=== PATIENT | female | born 1990 | race Two or more races ===

== ENCOUNTER 2018-05-18 19:37 | Emergency (ER) | payer OTHER ==
[~2018-05-18] VITALS: Ht 165.1 cm; Wt 137.9 kg
== END 2018-05-18 20:28 | disposition home or self-care (01) ==
LOC: ER 19:37
DX: M54.89 Other dorsalgia (principal)

== ENCOUNTER → 2018-06-12 | Emergency (ER) | payer OTHER ==
[~2018-06-12] VITALS: Ht 165.1 cm; Wt 140.6 kg
== END | disposition home or self-care (01) ==
LOC: ER 17:31
DX: N94.6 Dysmenorrhea, unspecified (principal); R10.2 Pelvic and perineal pain; N93.8 Other specified abnormal uterine and vaginal bleeding